=== PATIENT | female | born 2005 | race Two or more races ===

== ENCOUNTER 2024-05-21 13:36 | Inpatient (IN) | payer OTHER ==
[~2024-05-21] VITALS: Ht 167.6 cm; Wt 77.9 kg
[2024-05-21 14:21] LABS: Basophils # (auto) 0 10 ^3/uL (0-0.2); Basophils % (auto) 0.3 % (0.0-2.0); Eosinophils # (auto) 0 10 ^3/uL (0-0.8); Hematocrit 38.4 % (36.0-46.0); Lymphocytes # (auto) 1.5 10 ^3/uL (0.4-5.4); Lymphocytes % (auto) 11.9 % (10.0-50.0); Mean Corpuscular Hemoglobin 29.6 pg (28.0-32.0); Mean Corpuscular Hgb Conc. 33.8 g/dL (32.0-36.0); Mean Corpuscular Volume 87.5 fL (80.0-100.0); Monocytes % (auto) 8.1 % (0.0-12.0); Neutrophils # (auto) 9.9 10 ^3/uL (1.6-8.6); Neutrophils % (auto) 79.7 % (37.0-80.0); Red Blood Cells 4.39 10^6/uL (4.0-5.20); Red Cell Distribution Width 14.5 % (11.8-14.3); White Blood Cell 12.4 10^3/uL (4.4-10.8)
[2024-05-21 14:44] LABS: Alanine Aminotransferase 12 U/L (7-40); Albumin 4.7 g/dL (3.2-4.8); Alkaline Phosphatase 66 U/L (46-116); Anion Gap 17 (5-15); Aspartate Aminotransferase 10 U/L (13-40); BUN/Creatinine Ratio 14.1 (10.0-20.0); Blood Urea Nitrogen 10 mg/dL (9-23); Carbon Dioxide 15 mmol/L (20-30); Chloride 110 mmol/L (98-107); Glucose 110 mg/dL (74-106); Potassium 2.9 mmol/L (3.5-5.1); Sodium 142 mmol/L (136-145)
[2024-05-21 14:45] LABS: Bilirubin, Total 1.5 mg/dL (0.2-1.0); Total Protein 7.1 g/dL (5.7-8.2)
[2024-05-21] MEDS: ONDANSETRON HCL 4 MG/2 ML VIAL IV ONE (16:31)
[2024-05-21] MEDS: SODIUM CHLORIDE 0.9% 2,000 ML IV ONE (16:32)
[2024-05-21 16:52] LABS: Urine Bacteria FEW /hpf (None Seen); Urine Blood Negative /uL (Negative); Urine Clarity Turbid (Clear); Urine Color Yellow (Yellow); Urine Mucus FEW (None Seen); Urine Protein, UAD 1+ (Negative); Urine Specific Gravity 1.028 (1.001-1.035); Urine Urobilinogen Normal (Negative); Urine WBC 6 /hpf (0 - 5)
[2024-05-21 17:16] LABS: Amphetamine Screen, Urine Neg (NEGATIVE); Barbiturate Scree,Urine Neg (NEGATIVE); Benzodiazephine Screen, Urine Neg (NEGATIVE); Cocaine Screen, Urine Neg (NEGATIVE)
[2024-05-21 17:17] LABS: Cannabinoid Screen, Urine Pos (NEGATIVE); Opiate Scree,Urine Neg (NEGATIVE); Phencyclidine Screen, Urine Neg (NEGATIVE)
[2024-05-21] MEDS: POTASSIUM CHL 20MEQ/100ML 100 ML IV SCH (17:20)
[2024-05-21] MEDS: ONDANSETRON ODT 4 MG TAB PO ONE (18:30)
[2024-05-21] MEDS: SODIUM CHLORIDE 0.9% 500 ML IV ONE (18:46)
[2024-05-21] MEDS ORDERED: DOCUSATE SOD 100 MG CAP PO PRN (19:15)
[2024-05-21] MEDS ORDERED: ACETAMINOPHEN 325 MG TAB PO PRN (19:15)
[2024-05-21] MEDS ORDERED: METOCLOPRAMIDE HCL 5MG/ml INJ 2ml VIAL IV PRN (19:15)
[2024-05-21] MEDS ORDERED: ONDANSETRON HCL 4 MG/2 ML VIAL IV PRN (19:15)
[2024-05-21 19:26] VITALS: BP 107/47; PULSE 64; RESP 17; TEMP 98.3; O2SAT 99
[2024-05-21] MEDS: SODIUM CHLOR 0.9% PF (SALINE LOCK) 10ML VIAL/SYR IV SCH (22:00)
[2024-05-22] MEDS ORDERED: ENOXAPARIN SOD 40 MG/0.4 ML SYRINGE SC SCH (10:00)
== END 2024-05-22 00:38 | disposition left against medical advice (07) | DRG 566 ==
LOC: ER 13:36 → OVERFLOW 20:08
PROVIDERS: ADMIT Internal Medicine Pulmonary Disease; ATTEND Internal Medicine
DX: O21.0 Mild hyperemesis gravidarum (principal); Z3A.01 Less than 8 weeks gestation of pregnancy; Z53.29 Procedure and treatment not carried out because of patient's decision for other reasons
CPT/HCPCS: 36415; 76801; 76817; 80053; 80307; 81001; 84702; 85025; 96361; 96365; 96366; 96375; G0378; J2405; J3480; Q0162

== ENCOUNTER 2024-08-06 11:27 | Emergency (ER) | payer MEDICAID, OTHER ==
[~2024-08-06] VITALS: Ht 162.6 cm; Wt 180.0 kg
[2024-08-06 12:53] LABS: Alanine Aminotransferase 12 U/L (7-40); Albumin 4.1 g/dL (3.2-4.8); Alkaline Phosphatase 61 U/L (46-116); Anion Gap 7 (5-15); Aspartate Aminotransferase 9 U/L (13-40); BUN/Creatinine Ratio 19.2 (10.0-20.0); Basophils # (auto) 0 10 ^3/uL (0-0.2); Basophils % (auto) 0.2 % (0.0-2.0); Blood Urea Nitrogen 10 mg/dL (9-23); Calcium 9.6 mg/dL (8.7-10.4); Carbon Dioxide 24 mmol/L (20-31); Chloride 108 mmol/L (98-107); Eosinophils # (auto) 0 10 ^3/uL (0-0.8); Eosinophils % (auto) 0.2 % (0.0-7.0); Glucose 85 mg/dL (74-106); Hematocrit 36.9 % (36.0-46.0); Hemoglobin 12.5 g/dL (12.2-16.2); Lymphocytes # (auto) 2.1 10 ^3/uL (0.4-5.4); Lymphocytes % (auto) 14.3 % (10.0-50.0); Mean Corpuscular Hemoglobin 30.5 pg (28.0-32.0); Mean Corpuscular Hgb Conc. 33.9 g/dL (32.0-36.0); Monocytes # (auto) 0.8 10 ^3/uL (0-1.3); Monocytes % (auto) 5.5 % (0.0-12.0); Neutrophils # (auto) 11.5 10 ^3/uL (1.6-8.6); Neutrophils % (auto) 79.8 % (37.0-80.0); Platelet Count (auto) 335 10^3/uL (140-450); Red Cell Distribution Width 13.9 % (11.8-14.3); Sodium 139 mmol/L (136-145); White Blood Cell 14.4 10^3/uL (4.4-10.8)
[2024-08-06 12:54] LABS: Bilirubin, Total 0.3 mg/dL (0.2-1.0); Total Protein 6.6 g/dL (5.7-8.2)
[2024-08-06 12:54] LABS: Urine Bacteria None Seen /hpf (None Seen)
[2024-08-06 13:18] LABS: Urine Blood 3+ /uL (Negative); Urine Clarity Turbid (Clear); Urine Color Colorless (Yellow); Urine Protein, UAD TRACE (Negative); Urine Specific Gravity 1.021 (1.001-1.035); Urine Urobilinogen Normal (Negative); Urine WBC 289 /hpf (0 - 5); Urine pH 6.5 (5.0-9.0)
[2024-08-06 13:20] LABS: Amphetamine Screen, Urine Neg (NEGATIVE); Barbiturate Scree,Urine Neg (NEGATIVE); Benzodiazephine Screen, Urine Neg (NEGATIVE); Cannabinoid Screen, Urine Neg (NEGATIVE); Cocaine Screen, Urine Neg (NEGATIVE); Opiate Scree,Urine Neg (NEGATIVE); Phencyclidine Screen, Urine Neg (NEGATIVE)
[2024-08-06] MEDS ORDERED: PHEN-1045 PO (16:14)
[2024-08-06] MEDS ORDERED: ACET-1304 PO (16:14)
[2024-08-06] MEDS ORDERED: CEPH500C PO (16:14)
[2024-08-06 20:00] VITALS: BP 127/54; PULSE 104; RESP 13; O2SAT 96
[2024-08-06] MEDS: PHENAZOPYRIDINE HCL 100 MG TAB PO ONE (20:31)
[2024-08-06] MEDS: cefTRIAXone SOD 1,000 MG VL IM ONE (20:31)
== END 2024-08-06 20:32 | disposition home or self-care (01) ==
LOC: ER 11:40
DX: O23.42 Unspecified infection of urinary tract in pregnancy, second trimester (principal); R10.2 Pelvic and perineal pain; O26.891 Other specified pregnancy related conditions, first trimester; N39.0 Urinary tract infection, site not specified; Z3A.17 17 weeks gestation of pregnancy; Z79.899 Other long term (current) drug therapy
CPT/HCPCS: 36415; 76805; 80053; 80307; 81001; 84702; 85025; 96372; 99285; J0696

== ENCOUNTER 2025-01-13 06:45 | Observation (INO) | payer MEDICAID ==
[~2025-01-13 06:45] MED LIST: ACET-1304 PO; CEPH500C PO; PHEN-1045 PO
--- NOTE | 2025-01-13 10:25 | DVH ---
Procedure: US BIOPHYSICAL PROFILE 01/13/2025 09:56 AM Indication: Term Comparison: None Technique: Sonogram of gravid uterus utilizing grayscale and color techniques. FINDINGS: Single living intrauterine gestation. Presentation: Cephalic Placenta: Anterior heart rate: 154 bpm ANIBAL: 10 cm, DVP: 2.8 cm Maternal cervix: Not visualized Biophysical Profile: breathing score: 2 movement score: 2 tone: 2 Quantitative ANIBAL score: 2 Total score: 8/8 IMPRESSION: 1. Single living as above. 2. Biophysical profile score: 8/8.
[2025-01-13] MEDS ORDERED: PREN-96 PO (11:03)
--- NOTE | 2025-01-13 11:30 | DVHDS2 ---
Physician Discharge Progress N Final Diagnosis: postdates 40 wks Operations or Procedures: Operations or Procedures nst,sono Condition on Discharge: Good Disposition: Home Discharge Instructions: Diet: Regular Activity: No Restrictions, As Tolerated Medications: na Follow Up Care: Specialist: induction tmw Discharge Statement: "Patient was advised to return to the ER or call 911 if any headaches, dizziness, shortness of breath, chest pain, abdominal pain, bleeding, fevers, or worsening of medical condition. Patient was counseled about treatment plan, medications, possible side effects, patientverbalized understanding. All questions were answered to the best of my ability. This discharge took greater then 30 minutes in planning, reviewing documenta tion, counseling the patient, and discussing with other team members." Visit Coding OBGYN Date of Service: Jan 13, 2025 Billing Provider: MATTHEW ARROYO DO PROJECT SPECIALIST Common Visit Codes: [id number] INP/OBS CARE (HIGH) PROJECT SPECIALIST Procedure Codes: 42101-05- NON-STRESS TEST MATTHEW ARROYO DO Jan 13, 2025 11:30
== END 2025-01-13 11:14 | disposition home or self-care (01) ==
LOC: LDRP 09:30
PROVIDERS: ADMIT Obstetrics & Gynecology; ATTEND Obstetrics & Gynecology
DX: O48.0 Post-term pregnancy (principal); Z98.890 Other specified postprocedural states; Z79.899 Other long term (current) drug therapy; Z3A.40 40 weeks gestation of pregnancy
CPT/HCPCS: 59025; 76819; 81002; 94760; G0378

== ENCOUNTER 2025-01-14 13:15 | Observation (INO) | payer MEDICAID ==
[~2025-01-14 13:15] MED LIST changes: +PREN-96 PO
--- NOTE | 2025-01-14 14:24 | DVH ---
BIOPHYSICAL PROFILE HISTORY: POST-DATES TECHNIQUE: Multiple transabdominal real-time grayscale sonographic images through the gravid uterus of the fetus with duplex Doppler color flow and M-mode spectral analysis FINDINGS: BIOPHYSICAL PROFILE: breathing score: 2 movement score: 2 tone score: 2 Quantitative ANIBAL score: 2 (ANIBAL: 10.8 Cm.) Total score: 8 The cervix not well visualized. Single live fetus in cephalic presentation. heart rate 121 beats per minute. Anterior placenta without previa or abruption IMPRESSION: Biophysical profile score: 8
--- NOTE | 2025-01-14 14:46 | DVHDS2 ---
Physician Discharge Progress N Final Diagnosis: IUP 40+ wk Secondary Diagnosis: surveillance Operations or Procedures: Operations or Procedures NST/BPP ANIBAL all WNL Condition on Discharge: Stable Disposition: Home Discharge Instructions: Diet: Regular Activity: Light activity Follow Up/Referral: Tonight for scheduled IOL Medications: N/A Follow Up Care: Discharge Statement: "Patient was advised to return to the ER or call 911 if any headaches, dizziness, shortness of breath, chest pain, abdominal pain, bleeding, fevers, or worsening of medical condition. Patient was counseled about treatment plan, medications, possible side effects, patientverbalized understanding. All questions were answered to the best of my ability. This discharge took greater then 30 minutes in planning, reviewing documentation, counseling the patient, and discussing with other team members." Visit Coding OBGYN Date of Service: Jan 14, 2025 Billing Provider: HAVEN IRAHETA DO REAL ESTATE ECONOMIST Common Visit Codes: [id number]/[id number] SAME DATE (MOD) REAL ESTATE ECONOMIST Procedure Codes: 09801-74- NON-STRESS TEST HAVEN IRAHETA DO Jan 14, 2025 14:46
== END 2025-01-14 14:53 | disposition home or self-care (01) ==
LOC: LDRP 13:15 → UNDOADMOB 13:15 → LDRP 13:24
PROVIDERS: ADMIT Obstetrics & Gynecology; ATTEND Obstetrics & Gynecology
DX: O48.0 Post-term pregnancy (principal); Z3A.40 40 weeks gestation of pregnancy; Z79.899 Other long term (current) drug therapy
CPT/HCPCS: 59025; 76819; 81002; 94760; G0378

== ENCOUNTER 2025-01-14 20:15 | Inpatient (IN) | payer MEDICAID ==
[~2025-01-14] VITALS: Ht 162.6 cm; Wt 113.4 kg
[2025-01-14] MEDS ORDERED: LIDOCAINE 2%HCL (LOCAL ANESTH.) INJ 20ML MDV IJ PRN (20:30)
[2025-01-14] MEDS ORDERED: NALBUPHINE HCL 10 MG/1ml INJECTION IV PRN (20:30)
[2025-01-14] MEDS ORDERED: NALBUPHINE HCL 10 MG/1ml INJECTION IM PRN (20:30)
[2025-01-14] MEDS: LACTATED RINGER'S 1,000 ML IV SCH (21:29)
[2025-01-14 22:13] LABS: Basophils # (auto) 0 10 ^3/uL (0-0.2); Eosinophils # (auto) 0 10 ^3/uL (0-0.8); Hemoglobin 9.9 g/dL (12.2-16.2)
[2025-01-14 22:15] LABS: Basophils % (auto) 0.1 % (0.0-2.0); Eosinophils % (auto) 0.3 % (0.0-7.0); Lymphocytes # (auto) 2.5 10 ^3/uL (0.4-5.4); Lymphocytes % (auto) 18.8 % (10.0-50.0); Mean Corpuscular Hemoglobin 26.3 pg (28.0-32.0); Mean Corpuscular Hgb Conc. 31.8 g/dL (32.0-36.0); Mean Corpuscular Volume 82.6 fL (80.0-100.0); Monocytes # (auto) 1.2 10 ^3/uL (0-1.3); Monocytes % (auto) 8.8 % (0.0-12.0); Neutrophils # (auto) 9.4 10 ^3/uL (1.6-8.6); Platelet Count (auto) 347 10^3/uL (140-450); Red Blood Cells 3.75 10^6/uL (4.0-5.20); Red Cell Distribution Width 13.7 % (11.8-14.3); White Blood Cell 13.1 10^3/uL (4.4-10.8)
--- NOTE | 2025-01-14 22:21 | DVHHP2 ---
OB CC & HPI Date Date of Admission: Jan 14, 2025 Patient Identification: : 1 Para: 0 EDC: Jan 12, 2025 EGA: 40.2 Chief Complaints: Reason for admission: induction of labor Indication for induction: maternal discomfort History of Present Complaints 19y G1Po IUP 40.2 wk dated by 15 wk US Good PNL care. Patient with Morbid obesity, and excessive maternal weight gain approx 70 pounds during . GBS+. Admitted for elective induction of labor. Denies PROM or uterine contractions. EFW 7lb 6oz by US 2 wk ago. Past Medical History Cardiac: No pertinent Hx Pulmonary: No pertinent Hx Central Nervous System: No pertinent Hx GI: No pertinent Hx Hemotology/Oncology: No pertinent Hx Hepatobiliary: No pertinent Hx Psychiatric: No pertinent Hx Musculoskeletal: No pertinent Hx Rheumotologic: No pertinent Hx Infectious Disease: No peritnent Hx ENT: No pertinent Hx Renal/: No pertinent Hx Endocrine: No pertinent Hx Dermatology: No pertinent Hx Past Surgical History: No pertinent Hx OB History OB History Ultrasounds: Normal mid trimester US Obstetrical Complications: None Medical Complications: None Other Concerns: Excessive maternal weight gain 70 pounds, Morbid obesity, 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, THC+ in 1st TM Allergies: Coded Allergies: NO KNOWN ALLERGIES (Unverified , 05/21/24) Home Meds Active Scripts Phenazopyridine HCl (Phenazopyridine Hydrochol) 200 Mg Tab, 200 MG PO TID PRN, #9 TAB prn urinary pain Prov:NORMA SMART MD 08/06/24 Acetaminophen (Tylenol Extra Strength) 500 Mg Tab, 1000 MG PO Q6HP PRN, #30 TAB prn pain or fever Prov:NORMA SMART MD 08/06/24 Cephalexin Monohydrate (Cephalexin) 500 Mg Cap, 1 CAP PO QID for 10 Days, #40 CAP Prov:NORMA SMART MD 08/06/24 Reported Medications Vit W/ Ferrous Fumara ( One Daily) Daily Tab, 1 TAB PO DAILY, #90 TAB 3 Refills 01/13/25 Current Medications Current Medications Medications (Trade) Dose Ordered Sig/Terrance Route PRN Reason Start Time Stop Time Status Last Admin Lactated Ringer's 1,000 ml @ 125 mls/hr Q8H IV 01/14/25 20:30 01/14/25 21:29 Nalbuphine HCl (Nubain) 10 mg Q4HP PRN IM MODERATE PAIN (4-6 PAIN SCALE) 01/14/25 20:30 Nalbuphine HCl (Nubain) 10 mg Q4HP PRN IV MODERATE PAIN (4-6 PAIN SCALE) 01/14/25 20:30 Witch Loren (Tucks) 1 pad PRN PRN TOP PERINEAL AREA DISCOMFORT 01/14/25 20:30 Sodium Lauryl Sulfate (Phisoderm) 240 ml PRN PRN TOP PERINEAL AREA DISCOMFORT 01/14/25 20:30 Benzocaine (Dermoplast) 1 applic PRN PRN TOP PERINEAL AREA DISCOMFORT 01/14/25 20:30 Lidocaine HCl (Xylocaine) 40 ml ONCE PRN IJ PERINEAL AREA DISCOMFORT 01/14/25 20:30 Misoprostol (Cytotec) 50 mcg Q4HPRN PRN PO CERVICAL RIPENING 01/14/25 22:00 Penicillin G Potassium 0641603 units/Dextrose 50 ml @ 100 mls/hr Q4H IV 01/15/25 02:15 Family & Social History Family/Social History Blood Type: A+ Rubella: immune RPR/VDRL: Negative GBS Status: Negative HBsAG: Negative Review of Systems Constitutional: No symptom reported Ears, Nose, & Throat: No symptom reported Eyes: No symptom reported Pulmonary/Respiratory: No symptom reported Cardiovascular: No symptom reported Gastrointestinal: No symptom reported Genitourinary: No symptom reported Musculoskeletal: No symptom reported Skin: No symptom reported Psychiatric: No symptom reported Endocrine: No symptom reported Hemotologic/Lymphatic: No symptom reported OB Admission Exam Physical Exam HEENT: NCAT Heart: Rhythm Normal Lungs: Clear Abdomen: Gravid Extremities: Normal Reflexes: Normal Cervical Dilatation: 4cm Effacement: 50% Station: -3 Membranes: Intact Heart Rate: 120's Accelerations: Accelerations Present Decelerations: No Decelerations Short Term Variability: Present Jail Variability: Average (6-25) Contractions on Admission: >10 Minutes Apart Intensity: Mild OB Plan Plan Admitting Diagnosis: 19y G1PO IUP 40.2 weeks Elective labor induction GBS positive Hx of THC+ use in early 1st TM Morbid obesity w/ excessive maternal weight gain Plan: Induction Other Plan: Admit for labor induction, PO Cytotec per protocol OB ultrasound for EFW now GBS+, Elfego in active labor or PROM Informed consent obtained Indications for C/S , risks of shoulder dystocia/macrosomia all reviewed w/ patient. Visit Coding OBGYN Date of Service: Jan 14, 2025 Billing Provider: HAVEN IRAHETA DO WIRE WEAVING LOOM SETTER Common Visit Codes: [id number] OBS CARE (HIGH) HAVEN IRAHETA DO Jan 14, 2025 22:21
[2025-01-14 22:30] LABS: Alanine Aminotransferase 11 U/L (7-40); Albumin 3.7 g/dL (3.2-4.8); Anion Gap 10 (5-15); BUN/Creatinine Ratio 15.1 (10.0-20.0); Calcium 8.9 mg/dL (8.7-10.4); Carbon Dioxide 21 mmol/L (20-31); Glucose 87 mg/dL (74-106); INR 0.92 (0.9-1.15); Partial Thromboplastin Time 26.5 SEC (24.5-34.5); Potassium 3.6 mmol/L (3.5-5.1); Prothrombin Time 9.8 sec (9.3-11.8); Sodium 138 mmol/L (136-145)
[2025-01-14 22:31] LABS: Bilirubin, Total 0.3 mg/dL (0.2-1.0)
[2025-01-14 22:33] LABS: Alkaline Phosphatase 145 U/L (46-116); Aspartate Aminotransferase 12 U/L (13-40); Blood Urea Nitrogen 8 mg/dL (9-23); Chloride 107 mmol/L (98-107)
[2025-01-14 23:11] LABS: Urine Bacteria FEW /hpf (None Seen); Urine Blood TRACE /uL (Negative); Urine Clarity Clear (Clear); Urine Color Yellow (Yellow); Urine Mucus FEW (None Seen); Urine Protein, UAD TRACE (Negative); Urine Squamous Epithelial Cell FEW /hpf (<5); Urine Urobilinogen 2 mg/dL (Negative); Urine WBC 15 /HPF (0-5)
--- NOTE | 2025-01-14 23:14 | DVH ---
LIMITED SURVEY CLINICAL HISTORY: EFW COMPARISON: US OB ULTRASOUND COMP GTR 14 WKS on DOS: 08/06/24 TECHNIQUE: Real-time grayscale, color flow and M-mode imaging of the gravid uterus is performed. FINDINGS: Single living intrauterine gestation. Cephalic presentation. heart rate 135 beats per minute. Average ultrasound age 39 weeks 5 days. Estimated due date 01/16/2025. Possible nuchal cord is noted. Attention on follow-up. measurements (cm): BPD 9.7, HC 34.4, AC 35.8, FL 7.7. Estimated weight: 3854g Placenta is anterior. The cervix is not well visualized, however, there is no definite evidence of p revia or abruption at this time. Amniotic fluid index 9.3 cm. IMPRESSION: Single living intrauterine gestation as above.
[2025-01-14 23:20] LABS: Amphetamine Screen, Urine Neg (NEGATIVE); Barbiturate Scree,Urine Neg (NEGATIVE); Benzodiazephine Screen, Urine Neg (NEGATIVE); Cocaine Screen, Urine Neg (NEGATIVE); Opiate Scree,Urine Neg (NEGATIVE); Phencyclidine Screen, Urine Neg (NEGATIVE)
[2025-01-14 23:21] LABS: Cannabinoid Screen, Urine Neg (NEGATIVE)
[2025-01-14] MEDS: miSOPROStol 50 MCG per PRE-CUT 1/2 TAB PO PRN (23:30)
[2025-01-15] MEDS ORDERED: TERBUTALINE SULFATE 1 MG/ML 1ML VIAL SC PRN (03:45)
[2025-01-15] MEDS: PENICILLIN G POT 5MIL/D5 50ML 50 ML IV ONE (04:33)
[2025-01-15] MEDS: LACT. RINGERS/OXYTOCIN 20UNITS 1,000 ML IV SCH (04:47)
[2025-01-15] MEDS: ePHEDrine SULFATE 50 MG/ML AMP ONE (06:10)
--- NOTE | 2025-01-15 06:14 | DVHPN2 ---
OB Labor Progress Note Date and Time Seen Date Seen: Jan 15, 2025 Time Seen: 06:11 Subjective Patient reports: No new complaints, Feels better Objective Vital Signs Afeb VSS Monitoring Method Monitoring Method: External Heart Rate Heart Rate Baseline: 135 Heart Rate Variability: Moderate Presence of FHR Accelerations: Yes Presence of FHR Decelerations: No Contractions Contractions Intensity: Mild Contractions Resting Tone: Relaxed Membranes Membranes: Intact Vaginal Exam Vag Exam Deferred: Yes (RN Exam : 4.5/60%/-3) Medications Medications - Pitocin: Yes (2 mu/min) Medication - Epidural: No Lab Results Lab Results Current Medications Medications (Trade) Dose Ordered Sig/Terrance Start Time Stop Time Status Last Admin Dose Admin Lactated Ringer's 1,000 ml @ 125 mls/hr Q8H 01/14/25 20:30 01/14/25 21:29 125 MLS/HR Nalbuphine HCl (Nubain) 10 mg Q4HP PRN 01/14/25 20:30 Nalbuphine HCl (Nubain) 10 mg Q4HP PRN 01/14/25 20:30 Witch Loren (Tucks) 1 pad PRN PRN 01/14/25 20:30 Sodium Lauryl Sulfate (Phisoderm) 240 ml PRN PRN 01/14/25 20:30 Benzocaine (Dermoplast) 1 applic PRN PRN 01/14/25 20:30 Lidocaine HCl (Xylocaine) 40 ml ONCE PRN 01/14/25 20:30 Misoprostol (Cytotec) 50 mcg Q4HPRN PRN 01/14/25 22:00 01/14/25 23:30 50 MCG Oxytocin 500 ml @ 999 mls/hr Q31M ONCE 01/14/25 22:00 01/14/25 22:30 DC Oxytocin 500 ml @ 125 mls/hr Q4H ONCE 01/14/25 22:30 01/15/25 02:29 DC Penicillin G Potassium 50 ml @ 100 mls/hr ONCE ONCE 01/14/25 22:15 01/14/25 22:44 DC 01/15/25 04:33 100 MLS/HR Penicillin G Potassium [id number] units/Dextrose 50 ml @ 100 mls/hr Q4H 01/15/25 02:15 Oxytocin 1,000 ml @ 6 ml/hr Q24H 01/15/25 03:45 01/15/25 04:47 6 ML/HR Terbutaline Sulfate (Brethine Inj) 0.25 mg ONCE PRN 01/15/25 03:45 Laboratory Tests Test 01/14/25 21:48 01/14/25 21:43 Range/Units White Blood Count 13.1 H 4.4-10.8 10^3/uL Red Blood Count 3.75 L 4.0-5.20 10^6/uL Hemoglobin 9.9 L 12.2-16.2 g/dL Hematocrit 31.0 L 36.0-46.0 % Mean Corpuscular Volume 82.6 80.0-100.0 fL Mean Corpuscular Hemoglobin 26.3 L 28.0-32.0 pg Mean Corpuscular Hemoglobin Concent 31.8 L 32.0-36.0 g/dL Red Cell Distribution Width 13.7 11.8-14.3 % Platelet Count 347 140-450 10^3/uL Mean Platelet Volume 8.1 6.9-10.8 fL Neutrophils (%) (Auto) 72.0 37.0-80.0 % Lymphocytes (%) (Auto) 18.8 10.0-50.0 % Monocytes (%) (Auto) 8.8 0.0-12.0 % Eosinophils (%) (Auto) 0.3 0.0-7.0 % Basophils (%) (Auto) 0.1 0.0-2.0 % Neutrophils # (Auto) 9.4 H 1.6-8.6 10 ^3/uL Lymphocytes # (Auto) 2.5 0.4-5.4 10 ^3/uL Monocytes # (Auto) 1.2 0-1.3 10 ^3/uL Eosinophils # (Auto) 0 0-0.8 10 ^3/uL Basophils # (Auto) 0 0-0.2 10 ^3/uL Nucleated Red Blood Cells 0.0 % Prothrombin Time 9.8 9.3-11.8 sec Prothrombin Time INR 0.92 0.9-1.15 Activated Partial Thromboplast Time 26.5 24.5-34.5 SEC Sodium Level 138 136-145 mmol/L Potassium Level 3.6 3.5-5.1 mmol/L Chloride Level 107 98-107 mmol/L Carbon Dioxide Level 21 20-31 mmol/L Anion Gap 10 5-15 Blood Urea Nitrogen 8 L 9-23 mg/dL Creatinine 0.53 L 0.550-1.02 mg/dL Glomerular Filtration Rate Calc 136 >90 mL/min BUN/Creatinine Ratio 15.1 10.0-20.0 Serum Glucose 87 74-106 mg/dL Calcium Level 8.9 8.7-10.4 mg/dL Total Bilirubin 0.3 0.2-1.0 mg/dL Aspartate Amino Transferase (AST) 12 L 13-40 U/L Alanine Aminotransferase (ALT) 11 7-40 U/L Alkaline Phosphatase 145 H 46-116 U/L Total Protein 6.0 5.7-8.2 g/dL Albumin 3.7 3.2-4.8 g/dL Treponema pallidum Antibody Non-reactive Negative Hepatitis B Surface Antigen Negative Negative Hepatitis C Antibody Negative Negative HIV (1&2) Antibody Negative Negative Rubella IgG Antibody Pending Urine Color Yellow Yellow Urine Clarity Clear Clear Urine pH 6.0 5.0-9.0 Urine Specific [place] 1.030 1.001-1.035 Urine Protein Trace H Negative Urine Ketones Trace Negative Urine Blood Trace H Negative /uL Urine Nitrite Negative Negative Urine Bilirubin Negative Negative Urine Urobilinogen 2 H Negative mg/dL Urine Leukocyte Esterase 3+ Negative /uL Urine RBC 1 0 - 4 /hpf Urine Microscopic WBC 15 H 0-5 /HPF Urine Squamous Epithelial Cells Few <5 /hpf Urine Calcium Oxalate Crystals Few None Seen Urine Bacteria Few H None Seen /hpf Urine Mucus Few None Seen Urine Glucose Normal Normal mg/dL Urine Opiates Screen Neg NEGATIVE Urine Fentanyl Screen Neg NEGATIVE Urine Barbiturates Screen Neg NEGATIVE Urine Phencyclidine Screen Neg NEGATIVE Urine Amphetamines Screen Neg NEGATIVE Urine Benzodiazepines Screen Neg NEGATIVE Urine Cocaine Screen Neg NEGATIVE Urine Cannabinoids Screen Neg NEGATIVE Assessment Assessment 19y G1Po, Term IUP 40.3 weeks GBS + Morbid Obesity Plan Plan Continue Pitocin Induction of labor Pen G in labor for GBS+ EFW 8lb 8oz by US on admission, observe for proper progress/ protraction of labor Care endorsed to Dr. Delgado/ Clarissa MARTE oncoming convict guard TEAM. Plan discussed with: Patient Visit Coding OBGYN Date of Service: Jan 15, 2025 Billing Provider: HAVEN IRAHETA DO HISTORICAL RECORDS ADMINISTRATOR Common Visit Codes: [id number] INP/OBS CARE(MOD) HAVEN IRAHETA DO Jan 15, 2025 06:14
--- NOTE | 2025-01-15 08:15 | DVHPN2 ---
CNM Labor Progress Note Date and Time Seen Date Seen: Jan 15, 2025 Time Seen: 07:42 Subjective Subjective Comment Pt feels better after epidural, denies pain. Consents to SVE, declines AROM/IUPC insertion at this time. Objective Vital Signs VSS, see chart sono EFW - 8lbs 8oz, vertex [place] EFW 8lbs today Monitoring Method Monitoring Method: External Heart Rate Heart Rate Baseline: 130 Heart Rate Variability: Moderate Presence of FHR Accelerations: Yes Presence of FHR Decelerations: No Are all 5 Components of the FH: Yes Contractions Contractions Frequency: Other (q3-4 min) Duration of Contraction: 80 Contractions Intensity: Moderate Contractions Resting Tone: Relaxed Membranes Membranes: Intact Vaginal Exam Vag Exam Deferred: No Vaginal Exam Dilation: 5 Vaginal Exam Effacement: 80 Vaginal Exam Station: -1 Vaginal Exam Presentation: VTX Vaginal Exam Show: Small Medications Medications - Pitocin: Yes (2mu) Medication - Epidural: Yes Medication - Other s/p cytotec Lab Results Lab Results Current Medications Medications (Trade) Dose Ordered Sig/Terrance Start Time Stop Time Status Last Admin Dose Admin Lactated Ringer's 1,000 ml @ 125 mls/hr Q8H 01/14/25 20:30 01/15/25 08:38 125 MLS/HR Nalbuphine HCl (Nubain) 10 mg Q4HP PRN 01/14/25 20:30 01/15/25 17:22 DC Nalbuphine HCl (Nubain) 10 mg Q4HP PRN 01/14/25 20:30 01/15/25 17:22 DC Gene Pimentel (Tucks) 1 pad PRN PRN 01/14/25 20:30 01/15/25 08:35 1 PAD Sodium Lauryl Sulfate (Phisoderm) 240 ml PRN PRN 01/14/25 20:30 01/15/25 08:35 240 ML Benzocaine (Dermoplast) 1 applic PRN PRN 01/14/25 20:30 01/15/25 08:35 1 APPLIC Lidocaine HCl (Xylocaine) 40 ml ONCE PRN 01/14/25 20:30 01/15/25 17:22 DC Misoprostol (Cytotec) 50 mcg Q4HPRN PRN 01/14/25 22:00 01/15/25 17:22 DC 01/14/25 23:30 50 MCG Oxytocin 500 ml @ 999 mls/hr Q31M ONCE 01/14/25 22:00 01/14/25 22:30 DC 01/15/25 15:01 999 MLS/HR Oxytocin 500 ml @ 125 mls/hr Q4H ONCE 01/14/25 22:30 01/15/25 02:29 DC 01/15/25 15:02 125 MLS/HR Penicillin G Potassium 50 ml @ 100 mls/hr ONCE ONCE 01/14/25 22:15 01/15/25 17:22 DC 01/15/25 04:33 100 MLS/HR Penicillin G Potassium [id number] units/Dextrose 50 ml @ 100 mls/hr Q4H 01/15/25 02:15 01/15/25 17:22 DC 01/15/25 08:37 100 MLS/HR Oxytocin 1,000 ml @ 6 ml/hr Q24H 01/15/25 03:45 01/15/25 17:22 DC 01/15/25 04:47 6 ML/HR Terbutaline Sulfate (Brethine Inj) 0.25 mg ONCE PRN 01/15/25 03:45 01/15/25 17:22 DC Ondansetron HCl (Zofran) 4 mg Q4HPRN PRN 01/15/25 11:00 01/15/25 11:26 4 MG Cefazolin Sodium/ Dextrose 50 ml @ 50 mls/hr ONCE ONCE 01/15/25 15:30 01/15/25 16:29 DC 01/15/25 16:21 50 MLS/HR Cefazolin Sodium 50 ml @ 100 mls/hr Q8HR 01/15/25 22:00 Sodium Chloride 200 ml @ 0 mls/hr Q0M ONCE 01/15/25 17:30 01/15/25 17:31 DC Ibuprofen (Motrin Tablet) 600 mg Q6HP PRN 01/15/25 18:30 Acetaminophen (Tylenol Tablet) 650 mg Q4HP PRN 01/15/25 18:30 Docusate Sodium (Colace Capsule) 200 mg HS 01/15/25 22:00 Laboratory Tests Test 01/14/25 21:48 01/14/25 21:43 Range/Units White Blood Count 13.1 H 4.4-10.8 10^3/uL Red Blood Count 3.75 L 4.0-5.20 10^6/uL Hemoglobin 9.9 L 12.2-16.2 g/dL Hematocrit 31.0 L 36.0-46.0 % Mean Corpuscular Volume 82.6 80.0-100.0 fL Mean Corpuscular Hemoglobin 26.3 L 28.0-32.0 pg Mean Corpuscular Hemoglobin Concent 31.8 L 32.0-36.0 g/dL Red Cell Distribution Width 13.7 11.8-14.3 % Platelet Count 347 140-450 10^3/uL Mean Platelet Volume 8.1 6.9-10.8 fL Neutrophils (%) (Auto) 72.0 37.0-80.0 % Lymphocytes (%) (Auto) 18.8 10.0-50.0 % Monocytes (%) (Auto) 8.8 0.0-12.0 % Eosinophils (%) (Auto) 0.3 0.0-7.0 % Basophils (%) (Auto) 0.1 0.0-2.0 % Neutrophils # (Auto) 9.4 H 1.6-8.6 10 ^3/uL Lymphocytes # (Auto) 2.5 0.4-5.4 10 ^3/uL Monocytes # (Auto) 1.2 0-1.3 10 ^3/uL Eosinophils # (Auto) 0 0-0.8 10 ^3/uL Basophils # (Auto) 0 0-0.2 10 ^3/uL Nucleated Red Blood Cells 0.0 % Prothrombin Time 9.8 9.3-11.8 sec Prothrombin Time INR 0.92 0.9-1.15 Activated Partial Thromboplast Time 26.5 24.5-34.5 SEC Sodium Level 138 136-145 mmol/L Potassium Level 3.6 3.5-5.1 mmol/L Chloride Level 107 98-107 mmol/L Carbon Dioxide Level 21 20-31 mmol/L Anion Gap 10 5-15 Blood Urea Nitrogen 8 L 9-23 mg/dL Creatinine 0.53 L 0.550-1.02 mg/dL Glomerular Filtration Rate Calc 136 >90 mL/min BUN/Creatinine Ratio 15.1 10.0-20.0 Serum Glucose 87 74-106 mg/dL Calcium Level 8.9 8.7-10.4 mg/dL Total Bilirubin 0.3 0.2-1.0 mg/dL Aspartate Amino Transferase (AST) 12 L 13-40 U/L Alanine Aminotransferase (ALT) 11 7-40 U/L Alkaline Phosphatase 145 H 46-116 U/L Total Protein 6.0 5.7-8.2 g/dL Albumin 3.7 3.2-4.8 g/dL Treponema pallidum Antibody Non-reactive Negative Hepatitis B Surface Antigen Negative Negative Hepatitis C Antibody Negative Negative HIV (1&2) Antibody Negative Negative Rubella IgG Antibody Pending Urine Color Yellow Yellow Urine Clarity Clear Clear Urine pH 6.0 5.0-9.0 Urine Specific [place] 1.030 1.001-1.035 Urine Protein Trace H Negative Urine Ketones Trace Negative Urine Blood Trace H Negative /uL Urine Nitrite Negative Negative Urine Bilirubin Negative Negative Urine Urobilinogen 2 H Negative mg/dL Urine Leukocyte Esterase 3+ Negative /uL Urine RBC 1 0 - 4 /hpf Urine Microscopic WBC 15 H 0-5 /HPF Urine Squamous Epithelial Cells Few <5 /hpf Urine Calcium Oxalate Crystals Few None Seen Urine Bacteria Few H None Seen /hpf Urine Mucus Few None Seen Urine Glucose Normal Normal mg/dL Urine Opiates Screen Neg NEGATIVE Urine Fentanyl Screen Neg NEGATIVE Urine Barbiturates Screen Neg NEGATIVE Urine Phencyclidine Screen Neg NEGATIVE Urine Amphetamines Screen Neg NEGATIVE Urine Benzodiazepines Screen Neg NEGATIVE Urine Cocaine Screen Neg NEGATIVE Urine Cannabinoids Screen Neg NEGATIVE Assessment Assessment A: 19yo IUP@40.3wks Induction of Labor for post dates Category I EFM Intact Membranes GBS negative Plan Plan P: Continue with IV pitocin titration per order Continuous monitoring Pain mgmt: epidural in place Frequent position changes in bed with peanut ball encouraged Limit SVE unless necessary Intrauterine resuscitation PRN Anticipate Pt offered primary section, pt declined. Discussed risk of shoulder dystocia with pt and partner. Possible complications of shoulder dystocia include damage to the nerves, Erb's palsy, broken clavicle and broken humerus discussed. Patient and partner verbalized understanding and want to continue wi th vaginal delivery. CNM will continue to co-manage with Dr. Delgado. Plan discussed with: Patient, Other (partner and 2 RNs) Visit Coding OBGYN Date of Service: Jan 15, 2025 Billing Provider: KALAYDJIAN,AZADUHI CNM TEA AND SPICE SUPERVISOR Common Visit Codes: [id number] INP/OBS CARE(HIGH) B[place] INIGUEZ CNM Jan 15, 2025 08:15
[2025-01-15] MEDS: DERMOPLAST 60ML BOTTLE TOP PRN (08:35)
[2025-01-15] MEDS: PHISODERM TOP SOLN 240ML BTL TOP PRN (08:35)
[2025-01-15] MEDS: WITCH HAZEL-GLYCERIN PAD TOP PRN (08:35)
[2025-01-15] MEDS: PENICILLIN G POTASSIUM 2,500,000 UNITS in D5W 5% 50 ML IV SCH (08:37)
--- NOTE | 2025-01-15 10:13 | DVHPN ---
DATE: 01/15/2025 SUBJECTIVE: The patient was seen in labor and delivery. Dr. Jacobson endorsed the patient to oncoming team. Norma, the sinter press operator, is in charge of management as of this morning. I saw the patient briefly and explained to her that her babies measured and that due to excessive weight gain in 72 pounds, the patient is at risk for shoulder dystocia. Option of primary discussed with the patient. The patient is adamant to proceed with vaginal delivery. Risks, complication of shoulder dystocia, damage to the nerves, Erb's palsy, other nerve damages discussed with the patient. Possibility of bleeding, , short-term and long-term morbidity, mortality discussed with the patient. The patient wants to proceed with vaginal delivery. I also informed Nery Kwan, the nurse, to manage the patient as far as the nursing is considered properly with proper documentation of the appropriate uterine contractions and if there is any need for IUPC/IFM to notify Dee Deee. The patient's all questions were answered. The patient clearly understands and wishes to proceed with trial of vaginal delivery. DO WALDEMAR Barnes/LAURI/MYA/IQB TID: [id number] RECEIPT: [id number]
[2025-01-15] MEDS: ONDANSETRON HCL 4 MG/2 ML VIAL IV PRN (11:26)
[2025-01-15] MEDS: ROPIVACAINE HCL 200 ML ONE (11:27)
--- NOTE | 2025-01-15 13:37 | DVHPN2 ---
CNM Labor Progress Note Date and Time Seen Date Seen: Jan 15, 2025 Time Seen: 13:23 Subjective Subjective Comment Pt denies pain, consents to SVE and AROM with IUPC/FSE now after R/B/A discussed. Objective Vital Signs VSS, see chart Monitoring Method Monitoring Method: External Heart Rate Heart Rate Baseline: 130 Heart Rate Variability: Moderate Presence of FHR Accelerations: Yes Presence of FHR Decelerations: Yes Heart Rate Type of Decel: Variable Decelerations Comment on Trends or Patterns: maternal position changed IV fluid bolus started pitocin turned off Are all 5 Components of the FH: Yes Contractions Contractions Frequency: Other (q1-3 min) Duration of Contraction: 80 Contractions Intensity: Moderate Contractions Resting Tone: Relaxed Membranes Membranes: Ruptured (AROM, blood tinged) Vaginal Exam Vag Exam Deferred: No (IUPC inserted posteriorly, blood tinged fluid return and FSE inserted) Vaginal Exam Dilation: 7 Vaginal Exam Effacement: 90 Vaginal Exam Station: 0 Vaginal Exam Presentation: VTX Vaginal Exam Show: Moderate Medications Medications - Pitocin: No Medication - Epidural: Yes Lab Results Lab Results Current Medications Medications (Trade) Dose Ordered Sig/Terrance Start Time Stop Time Status Last Admin Dose Admin Lactated Ringer's 1,000 ml @ 125 mls/hr Q8H 01/14/25 20:30 01/15/25 08:38 125 MLS/HR Nalbuphine HCl (Nubain) 10 mg Q4HP PRN 01/14/25 20:30 01/15/25 17:22 DC Nalbuphine HCl (Nubain) 10 mg Q4HP PRN 01/14/25 20:30 01/15/25 17:22 DC Gene Pimentel (Tucks) 1 pad PRN PRN 01/14/25 20:30 01/15/25 08:35 1 PAD Sodium Lauryl Sulfate (Phisoderm) 240 ml PRN PRN 01/14/25 20:30 01/15/25 08:35 240 ML Benzocaine (Dermoplast) 1 applic PRN PRN 01/14/25 20:30 01/15/25 08:35 1 APPLIC Lidocaine HCl (Xylocaine) 40 ml ONCE PRN 01/14/25 20:30 01/15/25 17:22 DC Misoprostol (Cytotec) 50 mcg Q4HPRN PRN 01/14/25 22:00 01/15/25 17:22 DC 01/14/25 23:30 50 MCG Oxytocin 500 ml @ 999 mls/hr Q31M ONCE 01/14/25 22:00 01/14/25 22:30 DC 01/15/25 15:01 999 MLS/HR Oxytocin 500 ml @ 125 mls/hr Q4H ONCE 01/14/25 22:30 01/15/25 02:29 DC 01/15/25 15:02 125 MLS/HR Penicillin G Potassium 50 ml @ 100 mls/hr ONCE ONCE 01/14/25 22:15 01/15/25 17:22 DC 01/15/25 04:33 100 MLS/HR Penicillin G Potassium 1538635 units/Dextrose 50 ml @ 100 mls/hr Q4H 01/15/25 02:15 01/15/25 17:22 DC 01/15/25 08:37 100 MLS/HR Oxytocin 1,000 ml @ 6 ml/hr Q24H 01/15/25 03:45 01/15/25 17:22 DC 01/15/25 04:47 6 ML/HR Terbutaline Sulfate (Brethine Inj) 0.25 mg ONCE PRN 01/15/25 03:45 01/15/25 17:22 DC Ondansetron HCl (Zofran) 4 mg Q4HPRN PRN 01/15/25 11:00 01/15/25 11:26 4 MG Cefazolin Sodium/ Dextrose 50 ml @ 50 mls/hr ONCE ONCE 01/15/25 15:30 01/15/25 16:29 DC 01/15/25 16:21 50 MLS/HR Cefazolin Sodium 50 ml @ 100 mls/hr Q8HR 01/15/25 22:00 Sodium Chloride 200 ml @ 0 mls/hr Q0M ONCE 01/15/25 17:30 01/15/25 17:31 DC Ibuprofen (Motrin Tablet) 600 mg Q6HP PRN 01/15/25 18:30 01/15/25 19:54 600 MG Acetaminophen (Tylenol Tablet) 650 mg Q4HP PRN 01/15/25 18:30 Docusate Sodium (Colace Capsule) 200 mg HS 01/15/25 22:00 01/15/25 19:54 200 MG Laboratory Tests Test 01/14/25 21:48 01/14/25 21:43 Range/Units White Blood Count 13.1 H 4.4-10.8 10^3/uL Red Blood Count 3.75 L 4.0-5.20 10^6/uL Hemoglobin 9.9 L 12.2-16.2 g/dL Hematocrit 31.0 L 36.0-46.0 % Mean Corpuscular Volume 82.6 80.0-100.0 fL Mean Corpuscular Hemoglobin 26.3 L 28.0-32.0 pg Mean Corpuscular Hemoglobin Concent 31.8 L 32.0-36.0 g/dL Red Cell Distribution Width 13.7 11.8-14.3 % Platelet Count 347 140-450 10^3/uL Mean Platelet Volume 8.1 6.9-10.8 fL Neutrophils (%) (Auto) 72.0 37.0-80.0 % Lymphocytes (%) (Auto) 18.8 10.0-50.0 % Monocytes (%) (Auto) 8.8 0.0-12.0 % Eosinophils (%) (Auto) 0.3 0.0-7.0 % Basophils (%) (Auto) 0.1 0.0-2.0 % Neutrophils # (Auto) 9.4 H 1.6-8.6 10 ^3/uL Lymphocytes # (Auto) 2.5 0.4-5.4 10 ^3/uL Monocytes # (Auto) 1.2 0-1.3 10 ^3/uL Eosinophils # (Auto) 0 0-0.8 10 ^3/uL Basophils # (Auto) 0 0-0.2 10 ^3/uL Nucleated Red Blood Cells 0.0 % Prothrombin Time 9.8 9.3-11.8 sec Prothrombin Time INR 0.92 0.9-1.15 Activated Partial Thromboplast Time 26.5 24.5-34.5 SEC Sodium Level 138 136-145 mmol/L Potassium Level 3.6 3.5-5.1 mmol/L Chloride Level 107 98-107 mmol/L Carbon Dioxide Level 21 20-31 mmol/L Anion Gap 10 5-15 Blood Urea Nitrogen 8 L 9-23 mg/dL Creatinine 0.53 L 0.550-1.02 mg/dL Glomerular Filtration Rate Calc 136 >90 mL/min BUN/Creatinine Ratio 15.1 10.0-20.0 Serum Glucose 87 74-106 mg/dL Calcium Level 8.9 8.7-10.4 mg/dL Total Bilirubin 0.3 0.2-1.0 mg/dL Aspartate Amino Transferase (AST) 12 L 13-40 U/L Alanine Aminotransferase (ALT) 11 7-40 U/L Alkaline Phosphatase 145 H 46-116 U/L Total Protein 6.0 5.7-8.2 g/dL Albumin 3.7 3.2-4.8 g/dL Treponema pallidum Antibody Non-reactive Negative Hepatitis B Surface Antigen Negative Negative Hepatitis C Antibody Negative Negative HIV (1&2) Antibody Negative Negative Rubella IgG Antibody Pending Urine Color Yellow Yellow Urine Clarity Clear Clear Urine pH 6.0 5.0-9.0 Urine Specific [place] 1.030 1.001-1.035 Urine Protein Trace H Negative Urine Ketones Trace Negative Urine Blood Trace H Negative /uL Urine Nitrite Negative Negative Urine Bilirubin Negative Negative Urine Urobilinogen 2 H Negative mg/dL Urine Leukocyte Esterase 3+ Negative /uL Urine RBC 1 0 - 4 /hpf Urine Microscopic WBC 15 H 0-5 /HPF Urine Squamous Epithelial Cells Few <5 /hpf Urine Calcium Oxalate Crystals Few None Seen Urine Bacteria Few H None Seen /hpf Urine Mucus Few None Seen Urine Glucose Normal Normal mg/dL Urine Opiates Screen Neg NEGATIVE Urine Fentanyl Screen Neg NEGATIVE Urine Barbiturates Screen Neg NEGATIVE Urine Phencyclidine Screen Neg NEGATIVE Urine Amphetamines Screen Neg NEGATIVE Urine Benzodiazepines Screen Neg NEGATIVE Urine Cocaine Screen Neg NEGATIVE Urine Cannabinoids Screen Neg NEGATIVE Assessment Assessment A: 19yo IUP@40.3wks Induction of Labor for post dates Category II EFM AROM, blood tinged GBS positive Plan Plan Start amnioinfusion with 300ml NS bolus then 125ml/hr maintenance for 1L total. Continue with GBS IV PCN treatment Restart pitocin IV if category I EFM and UCs allow per protocol Continuous monitoring Pain mgmt: epidural in place Frequent position changes in bed with peanut ball encouraged Limit SVE unless necessary Intrauterine resuscitation PRN Anticipate CNM will continue to co-manage with Dr. Delgado. Plan discussed with: Patient, Other (partner and 2 RNs) Visit Coding OBGYN Date of Service: Jan 15, 2025 Billing Provider: BAY INIGUEZ CNM [employer] Common Visit Codes: [id number] INP/OBS CARE(HIGH) BAY INIGUEZ CNM Jan 15, 2025 13:37
[2025-01-15] MEDS: LACT. RINGERS/OXYTOCIN 20UNITS 500 ML IV ONE ×2 (15:01→15:02)
[2025-01-15] MEDS: ceFAZolin 2 GM/D5W50ml 50 ML IV ONE (16:21)
[2025-01-15 19:30] VITALS: BP 119/77; PULSE 97; RESP 16; TEMP 99; O2SAT 95
[2025-01-15] MEDS: IBUPROFEN 600 MG TAB PO PRN (19:54)
[2025-01-15] MEDS: DOCUSATE SOD 100 MG CAP PO SCH (19:54)
[2025-01-15] MEDS: ACETAMINOPHEN 325 MG TAB PO PRN (22:28)
[2025-01-15 22:35] VITALS: BP 124/68; PULSE 94; RESP 15; TEMP 98.7; O2SAT 95
[2025-01-16] MEDS: ceFAZolin 1GM/50ML 50 ML IV SCH (00:05)
--- NOTE | 2025-01-16 00:58 | DVHPN2 ---
Progress Note Date Seen: Jan 16, 2025 Subjective S: bleeding is less, eating food without issues, denies lightheaded/dizziness, pain not well controlled with Tylenol/Motrin; wants something stronger, no concerns with urinating, passing flatus, no BM yet, ambulating well, bottle feeding vital signs Vital Sign Date Time Temp Pulse Resp B/P (MAP) Pulse Ox O2 Delivery O2 Flow Rate FiO2 01/15/25 22:35 98.7 94 15 124/68 (86) 95 98.7 01/15/25 19:30 Room Air Total Intake and Output 01/15/25 01/15/25 01/16/25 15:00 23:00 07:00 Intake Total 300 ml Output Total 700 ml Balance -400 ml medications Current Medications Medications Dose Ordered Sig/Terrance Route Start Time Stop Time Status Last Admin Dose Admin Lactated Ringer's 1,000 ml @ 125 mls/hr Q8H IV 01/14/25 20:30 01/15/25 08:38 125 MLS/HR Witric Loren 1 pad PRN PRN TOP 01/14/25 20:30 01/15/25 08:35 1 PAD Sodium Lauryl Sulfate 240 ml PRN PRN TOP 01/14/25 20:30 01/15/25 08:35 240 ML Benzocaine 1 applic PRN PRN TOP 01/14/25 20:30 01/15/25 08:35 1 APPLIC Ondansetron HCl 4 mg Q4HPRN PRN IV 01/15/25 11:00 01/15/25 11:26 4 MG Cefazolin Sodium 50 ml @ 100 mls/hr Q8HR IV 01/15/25 22:00 01/16/25 00:05 100 MLS/HR Ibuprofen 600 mg Q6HP PRN PO 01/15/25 18:30 01/15/25 19:54 600 MG Acetaminophen 650 mg Q4HP PRN PO 01/15/25 18:30 01/15/25 22:28 650 MG Docusate Sodium 200 mg HS PO 01/15/25 22:00 01/15/25 19:54 200 MG laboratory and microbiology Laboratory Tests 01/14/25 21:48 Test 01/14/25 21:48 Range/Units Serum Glucose 87 74-106 mg/dL Objective O: VSS Chest: heart sounds normal and lung sounds clear bilaterally Abd: soft, non-tender, fundus at U/firm/midline, active bowel sounds, no rebound or guarding Perineum: sutures intact, edges well approximated, no erythema/edema noted Ext: Non-tender, No edema, 2+ BLE DTRs Lochia: minimal See lab results Assessment/Plan A: 19yo now PPD#1 s/p VAVD Anemia Rh+ Rubella Immune Bottle feeding Bowel regimen P: Continue routine care Continue IV Ancef 1G q8h Pain medication ordered Plan discussed with: Patient, Other (partner) Visit Coding OBGYN Date of Service: Jan 16, 2025 Billing Provider: BAY INIGUEZ CNM [employer]OVING TECHNICIAN Common Visit Codes: [id number] INP/OBS CARE(HIGH) NILO ROMERO STDT MDWF Jan 16, 2025 00:58
[2025-01-16 03:00] VITALS: BP 128/71; PULSE 102; RESP 17; TEMP 98.5; O2SAT 96
[2025-01-16] MEDS: HYDROcodone-ACET 5/325MG TAB PO PRN ×2 (03:21→07:53)
[2025-01-16 07:00] VITALS: BP 111/54; PULSE 100; RESP 16; TEMP 98.7; O2SAT 97
--- NOTE | 2025-01-16 07:29 | LDN2 ---
Labor and Delivery Note Date 01/16/25 Age 19 1 Para 1 EDC 3-10 EGA 40wks Diagnosis iol,morbid obesity Vaginal Delivery: VTX Vacuum Assisted: Yes Placenta: Spontaneous Sex: Female Apgars 8-9 Nuchal Cord Transected: No Amniotic Fluid: Clear Anesthesia epidural Episiotomy: Yes Extension: Yes (midline epis with 2nd deg perineal lac) Repaired with 2-0 chromic EBL 300ml Labs Laboratory Tests 01/14/25 21:48: Hepatitis B Surface Antigen Negative, HIV (1&2) Antibody Negative Blood Bank 01/14/25 21:48: Blood Type A POSITIVE Complications none Conditions stable Comments/Significant Med Celeste due to poor pushing effort and decl vaccum and midline epis was done bc of prolonged decl. pt was asked for permission for both vaccum and epis which was granted.cord ph was 7.1 and 6.9 arterial and venous.midline epis was repaired .pt tolearated procedure well . Visit Coding OBGYN Date of Service: Jan 15, 2025 Billing Provider: MATTHEW ARROYO DO [employer] Common Visit Codes: [id number] INP/OBS CARE (HIGH) [employer]IMMER Consultation Codes: [id number] INPATIENT CONSULT (HIGH) [employer]IMMER Procedure Codes: [id number] DELIVERY ONLY MATTHEW ARROYO DO Jan 16, 2025 07:29
[2025-01-16 09:07] LABS: Rubella Antibodies, IgG 2.7 index (Immune >0.99)
[2025-01-16 09:10] LABS: Basophils # (auto) 0 10 ^3/uL (0-0.2); Basophils % (auto) 0.2 % (0.0-2.0); Eosinophils # (auto) 0 10 ^3/uL (0-0.8); Eosinophils % (auto) 0.1 % (0.0-7.0); Hematocrit 27.4 % (36.0-46.0); Hemoglobin 9.1 g/dL (12.2-16.2); Lymphocytes # (auto) 1.6 10 ^3/uL (0.4-5.4); Lymphocytes % (auto) 9.3 % (10.0-50.0); Mean Corpuscular Hemoglobin 27.1 pg (28.0-32.0); Mean Corpuscular Hgb Conc. 33.2 g/dL (32.0-36.0); Mean Corpuscular Volume 81.7 fL (80.0-100.0); Monocytes # (auto) 1.7 10 ^3/uL (0-1.3); Monocytes % (auto) 9.8 % (0.0-12.0); Neutrophils # (auto) 13.7 10 ^3/uL (1.6-8.6); Neutrophils % (auto) 80.6 % (37.0-80.0); Platelet Count (auto) 317 10^3/uL (140-450); Red Blood Cells 3.35 10^6/uL (4.0-5.20); Red Cell Distribution Width 13.9 % (11.8-14.3); White Blood Cell 16.9 10^3/uL (4.4-10.8)
[2025-01-16] MEDS: SODIUM CHLORIDE 0.9% 200 ML IUPC ONE (09:53)
[2025-01-16 11:00] VITALS: BP 112/70; PULSE 81; RESP 15; TEMP 98
[2025-01-16 15:12] VITALS: BP 126/72; PULSE 94; RESP 15; TEMP 98.4
[2025-01-16] MEDS ORDERED: DOCU-265 PO (16:29)
[2025-01-16] MEDS ORDERED: IBU600T PO (16:29)
[2025-01-16] MEDS ORDERED: CEPH500C PO (16:29)
--- NOTE | 2025-01-16 16:32 | DVHDS2 ---
Obstetrics Discharge Summary Obstetrics Discharge Summary Date of Admission: Jan 14, 2025 Date of Discharge: Jan 16, 2025 Reason For Admission: Induction of Labor Procedures: NST, Ultrasound Intrapartum Procedures: Vacuum Extraction, Episiotomy (midline) Procedures: Hct/date: (01/16/25), Hgb/date: (01/16/25) Operative Complicat: Laceration (second degree perineal) Discharge Diagnosis: Term -Delivered (pt afebrile, 24 hours of IV ancef received, pt wants be discharged so she can go be with her baby in NICU at [facility]) Discharge Information: Activity (as tolerated, no heavy lifting and nothing in the vagina for 6 weeks), Diet (Routine), Medications (Rx sent), Instructions (Routine), Discharge to (Home), Accompanied by (partner), Discarge date (01/16/25) Visit Coding OBGYN Date of Service: Jan 16, 2025 Billing Provider: BAY INIGUEZ CNM [employer] EX[employer]IVE Common Visit Codes: [id number]/[id number] DISCH DAY <30MIN BAY INIGUEZ CNM Jan 16, 2025 16:32
== END 2025-01-16 17:23 | disposition home or self-care (01) | DRG 560 ==
LOC: OBSVTOIN 20:15 → LDRP 20:15
PROVIDERS: ADMIT Obstetrics & Gynecology; ATTEND Obstetrics & Gynecology
PROC: 10D07Z6 Extraction of Products of Conception, Vacuum, Via Natural or Artificial Opening (ICD-10-PCS; principal; 2025-01-15)
PROC: 0KQM0ZZ Repair Perineum Muscle, Open Approach (ICD-10-PCS; 2025-01-15)
PROC: 0W8NXZZ Division of Female Perineum, External Approach (ICD-10-PCS; 2025-01-15)
PROC: 3E0R3BZ Introduction of Anesthetic Agent into Spinal Canal, Percutaneous Approach (ICD-10-PCS; 2025-01-15)
PROC: 00HU33Z Insertion of Infusion Device into Spinal Canal, Percutaneous Approach (ICD-10-PCS; 2025-01-15)
PROC: 3E033VJ Introduction of Other Hormone into Peripheral Vein, Percutaneous Approach (ICD-10-PCS; 2025-01-15)
DX: O48.0 Post-term pregnancy (principal); Z37.0 Single live birth; D53.9 Nutritional anemia, unspecified; E66.01 Morbid (severe) obesity due to excess calories; O26.03 Excessive weight gain in pregnancy, third trimester; O99.214 Obesity complicating childbirth; O99.824 Streptococcus B carrier state complicating childbirth; O70.1 Second degree perineal laceration during delivery; Z3A.40 40 weeks gestation of pregnancy
CPT/HCPCS: 36415; 59409; 62282; 76805; 80053; 80307; 81001; 85025; 85610; 85730; 86703; 86762; 86780; 86803; 86850; 86900; 86901; 87340; 94760; 96360; 96361; 96365; 96366; G0378; J2405; J2540; J2590; J7060